=== PATIENT | female | born 2000 | race African-American/Black ===

== ENCOUNTER 2024-09-10 18:19 | Emergency (ER) | payer OTHER ==
[~2024-09-10] VITALS: Ht 160 cm; Wt 59.1 kg
[2024-09-10 18:29] VITALS: TEMP 96.9
[2024-09-10 23:01] VITALS: BP 125/78; PULSE 71; RESP 16; O2SAT 96
== END 2024-09-10 23:20 | disposition home or self-care (01) ==
LOC: EMS 18:19
DX: S61.511A Laceration without foreign body of right wrist, initial encounter (principal); W25.XXXA Contact with sharp glass, initial encounter; Y93.G1 Activity, food preparation and clean up; Y92.89 Other specified places as the place of occurrence of the external cause; Y99.8 Other external cause status
CPT/HCPCS: 12001; 99282; Z7502